=== PATIENT | male | born 1990 | race Two or more races ===

== ENCOUNTER 2021-01-10 15:40 | Emergency (ER) | payer SELFPAY ==
[~2021-01-10] VITALS: Ht 175.3 cm; Wt 86.0 kg
[2021-01-10 16:49] VITALS: BP 115/77
[2021-01-10 16:56] LABS: BILIRUBIN,URINE NEGATIVE (NEG); CLARITY,URINE CLEAR; COLOR,URINE YELLOW; NITRITE,URINE NEGATIVE (NEG); PH,URINE 6.5 (<5.0-8.0); PROTEIN,URINE 30 mg/dL (NEG-TRACE); UROBILINOGEN,URINE 0.2 mg/dL (0.2 mg/dL)
[2021-01-10 17:00] LABS: BACTERIA,URINE 0 /HPF (0-FEW); RBC,URINE >40 /HPF (0-2); WBC,URINE TNTC /HPF (0-4)
[2021-01-10] MEDS ORDERED: DOXYCYCLINE HYCLATE 100 MG TABLET PO ONE (17:15)
[2021-01-10] MEDS ORDERED: cefTRIAXone IM 500 MG VIAL. IM ONE (17:15)
--- NOTE | 2021-01-10 18:07 | RAD ---
Exam Date: 01/10/2021 5:[address] ABDOMEN+PELVIS WO Indication: Reason: abd pain blood in urine / Spl. Instructions: / History: TECHNIQUE: CT examination of the abdomen and pelvis was performed without oral or intravenous contra st. One or more of the following dose reduction techniques were utilized: *Automated exposure control (AEC) *Adjustment of mA and/or kV according to patient size *Use of iterative reconstruction technique *CT scan done according to ALARA, or ALARA/IMAGE GENTLY FINDINGS: The visualized lung bases demonstrate motion artifact and mild subsegmental atelectasis. The liver, gallbladder, spleen, pancreas, and adrenal glands are normal. The kidneys are normal bilaterally. No hydronephrosis or hydroureter is seen. No urinary tract calc violet are seen. Urinary bladder is normal in appearance. There is no bowel obstruction or inflammation. The appendix is normal. No significant atherosclerotic calcifications are seen. No lymphadenopathy or ascites is seen. Degenerative changes are seen in the spine. IMPRESSION: Normal appearance of the kidneys and bladder. No hydronephrosis or hydroureter. No urinary tract ca lculi. Electronically signed by: Jose Villarreal MD (01/10/2021 6:04 PM) [facility]
[2021-01-10] MEDS ORDERED: DOXY100T PO (18:58)
--- NOTE | 2021-01-10 18:58 | PHYS DOC ---
Past Medical History Past Medical History: No Pertinent History (ERICKSON STEVEN Geraldo EHR TRAINER) Past Surgical History: No Surgical History (ERICKSON STEVEN EHR TRAINER) Smoking Status: Current Every Day Smoker Alcohol Use: Rarely (ERICKSON STEVEN EHR TRAINER) General Adult EDM: Chief Complaint: ABDOMINAL PAIN HPI: HPI: Patient is a 30 year old male who presents to the ED today complaining of dysuria and 6 out of 10 pubic pain, symptoms began yesterday. Patient denies any concerns for STDs. He is in the ED with the was interpreting for Faroese. Patient describes the pain as sharp. (ERICKSON STEVEN EHR TRAINER) Review of Systems: Review of Systems: Constitutional: Denies fever or chills. [] Eyes: Denies change in visual acuity. [] HENT: Denies nasal congestion or sore throat. [] Respiratory: Denies cough or shortness of breath. [] Cardiovascular: Denies chest pain or edema. [] GI: Reports abdominal pain, denies nausea, vomiting, bloody stools or diarrhea. [] : Reports dysuria. [] Musculoskeletal: Denies back pain or joint pain. [] Integument: Denies rash. [] Neurologic: Denies headache, focal weakness or sensory changes. Psychiatric: Denies depression or anxiety. [] (ERICKSON STEVEN EHR TRAINER) Heart Score: C/O Chest Pain: N/A Risk Factors: Risk Factors: DM, Current or recent (<one month) smoker, HTN, HLP, family history of CAD, obesity. Risk Scores: Score 0 - 3: 2.5% MACE over next 6 weeks - Discharge Home Score 4 - 6: 20.3% MACE over next 6 weeks - Admit for Clinical Observation Score 7 - 10: 72.7% MACE over next 6 weeks - Early Invasive Strategies (ERICKSON STEVEN EHR TRAINER) Current Medications: Current Medications Medications (Trade) Dose Ordered Sig/Angela Start Time Stop Time Status Last Admin Dose Admin Ceftriaxone Sodium (Rocephin Im) 500 mg 1X ONCE 01/10/21 17:15 01/10/21 17:16 DC 01/10/21 17:18 500 MG Doxycycline Hyclate (Vibra-Tab) 100 mg 1X ONCE 01/10/21 17:15 01/10/21 17:16 DC 01/10/21 17:17 100 MG (ERICKSON STEVEN EHR TRAINER) Allergies: Allergies: Allergies Coded Allergies Type Severity Reaction Last Updated Verified No Known Drug Allergies 01/10/21 No (ERICSKON STEVEN EHR TRAINER) Physical Exam: PE: Constitutional: Well developed, well nourished, no acute distress, non-toxic appearance. [] HENT: Normocephalic, atraumatic, bilateral external ears normal, oropharynx moist, no oral exudates, nose normal. [] Eyes: PERRLA, EOMI, conjunctiva normal, no discharge. [] Neck: Normal range of motion, no tenderness, supple, no stridor. [] Cardiovascular:Heart rate regular rhythm, no murmur [] Lungs & Thorax: Bilateral breath sounds clear to auscultation [] Abdomen: Bowel sounds normal, soft, no tenderness, no masses, no pulsatile mas ses. [] Skin: Warm, dry, no erythema, no rash. [] Back: No tenderness, no CVA tenderness. [] Extremities: No tenderness, no cyanosis, no clubbing, ROM intact, no edema. [] Neurologic: Alert and oriented X 3, normal motor function, normal sensory function, no focal deficits noted. [] Psychologic: Affect normal, judgement normal, mood normal. [] (ERICKSON STEVEN EHR TRAINER) Current Patient Data: Labs: Laboratory Tests Test 01/10/21 16:40 Urine Collection Type Unknown Urine Color Yellow Urine Clarity Clear Urine pH 6.5 (<5.0-8.0) Urine Specific [place] 1.015 (1.000-1.030) Urine Protein 30 mg/dL (NEG-TRACE) Urine Glucose (UA) Negative mg/dL (NEG) Urine Ketones (Stick) Negative mg/dL (NEG) Urine Blood Moderate (NEG) Urine Nitrite Negative (NEG) Urine Bilirubin Negative (NEG) Urine Urobilinogen Dipstick 0.2 mg/dL (0.2 mg/dL) Urine Leukocyte Esterase Large (NEG) Urine RBC >40 /HPF (0-2) Urine WBC Tntc /HPF (0-4) Urine Bacteria 0 /HPF (0-FEW) Vital Signs: Vital Signs Date Time Temp Pulse Resp B/P (MAP) Pulse Ox O2 Delivery O2 Flow Rate FiO2 01/10/21 16:49 97.9 85 16 115/77 (90) 97 Room Air 97.9 (ERICKSON STEVEN EHR TRAINER) EKG: EKG: [] (ERICKSON STEVEN APRN) Radiology/Procedures: Radiology/Procedures: []PROCEDURE: CT ABDOMEN PELVIS WO CONTRAST Exam Date: 01/10/2021 5:[address] ABDOMEN+PELVIS WO Indication: Reason: abd pain blood in urine / Spl. Instructions: / History: TECHNIQUE: CT examination of the abdomen and pelvis was performed without oral or intravenous contrast. One or more of the following dose reduction techniques were utilized: *Automated exposure control (AEC) *Adjustment of mA and/or kV according to patient size *Use of iterative reconstruction technique *CT scan done according to ALARA, or ALARA/IMAGE GENTLY FINDINGS: The visualized lung bases demonstrate motion artifact and mild subsegmental atelectasis. The liver, gallbladder, spleen, pancreas, and adrenal glands are normal. The kidneys are normal bilaterally. No hydronephrosis or hydroureter is seen. No urinary tract calculi are seen. Urinary bladder is normal in appearance. There is no bowel obstruction or inflammation. The appendix is normal. No significant atherosclerotic calcifications are seen. No lymphadenopathy or ascites is seen. Degenerative changes are seen in the spine. IMPRESSION: Normal appearance of the kidneys and bladder. No hydronephrosis or hydroureter. No urinary tract calculi. Electronically signed by: Shelley Villarreal MD (01/10/2021 6:04 PM) [facility] DICTATED and SIGNED BY: SHELLEY VILLARREAL MD DATE: 01/10/21 [id number] 0 (ERICKSON STEVEN APRN) Course & Med Decision Making: Course & Med Decision Making Pertinent Labs and Imaging studies reviewed. (See chart for details) This is a 30-year-old Faroese-speaking male presenting to the ED today complaining of dysuria and pelvic pain, symptoms for 2 days. is interpreting. Urine noted for infection. Urine also noted for blood. CT of the abdomen and pelvic is negative for kidney stones. Highly suspect this could be an STD situation. Patient was given the standard STD treatment and sent home on doxycycline. was offered treatment for STDs, she refused (ERICKSON STEVEN APRN) Dragon Disclaimer: Dragon Disclaimer: This electronic medical record was generated, in whole or in part, using a voice recognition dictation system. (ERICKSON STEVEN APRN) Departure Departure Impression: Primary Impression: Urinary tract infection Qualified Codes: N39.0 - Urinary tract infection, site not specified Disposition: HOME / SELF CARE / HOMELESS Condition: STABLE Referrals: NO PCP (PCP) Follow-up with your own primary care doctor in 1 week Patient Instructions: Urinary Tract Infection Additional Instructions: You were evaluated in the emergency room and noted to have infection in your urine, your CT of the abdomen and pelvic is negative for any acute findings. Please take the prescribed antibiotics until completed. Follow-up with your doctor in 1 week Scripts Doxycycline Hyclate (DOXYCYCLINE HYCLATE) 100 Mg Tablet 1 TAB PO BID, #14 TAB Prov: ERICKSON STEVEN APRN 01/10/21 Attending Signature Attending Signature I have reviewed the PA/SNOW FENCE ERECTOR's note and plan of care. I was available for consultation as needed during the patient's visit in the emergency department. I agree with the clinical impression, plan, and disposition. (ELIZABET TRUONG DO) ERICKSON STEVEN APRN Jan 10, 2021 18:58 ELIZABET TRUONG DO Jan 11, 2021 00:49
== END 2021-01-10 19:03 | disposition home or self-care (01) ==
LOC: ER 15:40
DX: N39.0 Urinary tract infection, site not specified (principal); F17.200 Nicotine dependence, unspecified, uncomplicated
CPT/HCPCS: 74176; 81001; 87086; 87491; 87591; 96372; 99284; J0696; 87077; 87186